=== PATIENT | female | born 1945 | race Caucasian/White ===

== ENCOUNTER 2022-12-18 01:23 | Emergency (ER) | payer MEDICARE, BC | END 2022-12-18 02:06 | disposition home or self-care (01) | LOC: BURERS 01:23 | DX: M25.571 Pain in right ankle and joints of right foot (principal); E03.9 Hypothyroidism, unspecified; M19.90 Unspecified osteoarthritis, unspecified site; Z79.899 Other long term (current) drug therapy ==